=== PATIENT | female | born 1985 | race African-American/Black ===

== ENCOUNTER 2019-04-28 15:33 | Emergency (ER) | payer OTHER, SELFPAY ==
[2019-04-28] MEDS ORDERED: ACETAMINOPHEN 325 MG TABLET ONE (16:19)
[2019-04-28] MEDS ORDERED: IBUPROFEN 400 MG TAB ONE (16:20)
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
[2019-04-28 18:06] VITALS: TEMP 98.6; O2SAT 100
[2019-04-28 18:07] VITALS: BP 106/59
== END 2019-04-28 16:55 | disposition home or self-care (01) ==
LOC: ER 15:33
DX: S16.1XXA Strain of muscle, fascia and tendon at neck level, initial encounter (principal); V49.9XXA Car occupant (driver) (passenger) injured in unspecified traffic accident, initial encounter; I10 Essential (primary) hypertension; Z86.718 Personal history of other venous thrombosis and embolism; F17.210 Nicotine dependence, cigarettes, uncomplicated
CPT/HCPCS: 99284